=== PATIENT | male | born 1960 | race Caucasian/White ===

== ENCOUNTER 2019-09-15 14:00 | Inpatient (IN) | payer MEDICARE, MEDICAID ==
[2019-09-15] MEDS ORDERED: Albuterol 0.083% 2.5 MG/3 ML Neb Soln NEB PRN (15:51)
--- NOTE | 2019-09-15 16:01 | PCM.HP ---
H&P History of Present Illness - General Date of Service: 09/15/19 Admit Problem/Dx: Admission Diagnosis/Problem Admission Diagnosis/Problem COPD, Severe chronic obstructive pulmonary disease Source of Information: Patient History Limitations: Reports: No Limitations - History of Present Illness Initial Comments - Free Text/Narative: This 58-year-old man with medical history of coronary artery disease, peripheral vascular disease, COPD, obesity. The patient was admitted from the clinic with complaint of shortness of breath which has been going on for the past 4 days. It is present at rest and worse with activity. There is associated orthopnea. Exercise tolerance has been limited because of the shortness of breath. He also has mild cough. Has mild lower extremity swelling. Patient has been active smoker about 2 packs of cigarettes a day. Last tobacco use was 2 days ago. He was started on treatment as outpatient for pneumonia using azithromycin and Vantin. Has not improved - Related Data Allergies/Adverse Reactions: Allergies Allergy/AdvReac Type Severity Reaction Status Date / Time cat dander Allergy Other Verified 09/15/19 15:39 Penicillins Allergy Hives Verified 09/15/19 15:39 hydrochlorothiazide AdvReac Nausea Verified 09/15/19 15:39 [From Zestoretic] lisinopril [From Zestoretic] AdvReac Nausea Verified 09/15/19 15:39 Home Medications: Home Meds Albuterol [Ventolin HFA] 2 puff INH TID PRN 09/15/19 [History] Azithromycin 500 mg PO ASDIRECTED 09/15/19 [History] Cefpodoxime [Vantin] 200 mg PO BID 09/15/19 [History] Clopidogrel Bisulfate [Clopidogrel] 75 mg PO DAILY 09/15/19 [History] Isosorbide Mononitrate [Isosorbide Mononitrate ER] 120 mg PO DAILY 09/15/19 [History] Losartan Potassium 50 mg PO DAILY 09/15/19 [History] Metoprolol Succinate [Toprol XL 100mg] 100 mg PO DAILY 09/15/19 [History] Nitroglycerin [Nitrostat] 0.4 mg SL .Q5MIN PRN 09/15/19 [History] Simvastatin 20 mg PO DAILY 09/15/19 [History] Tiotropium [Spiriva HandiHaler] 18 mcg INH DAILY 09/15/19 [History] Past Medical History HEENT History: Reports: Glaucoma, Impaired Vision Other HEENT History: peripheral vision in right eye poor due to stroke. Cardiovascular History: Reports: Angina, Bypass, High Cholesterol, SOB on Exertion Respiratory History: Reports: COPD, SOB Gastrointestinal History: Reports: Other (See Below) Other Gastrointestinal History: abdominal hernia, inguinal hernia. Genitourinary History: Reports: None Musculoskeletal History: Reports: Arthritis, Back Pain, Chronic, Fracture Other Musculoskeletal History: broken left ankle Neurological History: Reports: Vertigo Psychiatric History: Reports: None Endocrine/Metabolic History: Reports: Obesity/BMI 30+ Hematologic History: Reports: None Immunologic History: Reports: None Oncologic (Cancer) History: Reports: None Dermatologic History: Reports: Other (See Below) Other Dermatologic History: excessive dryness to legs - Infectious Disease History Infectious Disease History: Reports: Chicken Pox, Measles, MRSA - Past Surgical History HEENT Surgical History: Reports: Adenoidectomy, Tonsillectomy Cardiovascular Surgical History: Reports: Coronary Artery Bypass Respiratory Surgical History: Reports: None GI Surgical History: Reports: Colonoscopy, Hernia, Abdominal, Hernia, Inguinal Endocrine Surgical History: Reports: None Neurological Surgical History: Reports: Spinal Fusion Musculoskeletal Surgical History: Reports: None Dermatological Surgical History: Reports: None Social & Family History - Family History Family Medical History: Noncontributory - Tobacco Use Smoking Status *Q: Current Some Day Smoker Years of Tobacco use: 40 Packs/Tins Daily: 2 Used Tobacco, but Quit: No - Caffeine Use Caffeine Use: Reports: Soda - Recreational Drug Use Recreational Drug Use: No H&P Review of Systems - Review of Systems: Review Of Systems: See Below General: Reports: Weakness Pulmonary: Reports: Shortness of Breath, Wheezing, Cough Cardiovascular: Reports: No Symptoms Gastrointestinal: Reports: No Symptoms Musculoskeletal: Reports: No Symptoms Exam - Exam Exam: See Below - Vital Signs Vital Signs: Last Vital Signs Temp 36.8 C 09/15/19 14:13 Pulse 88 09/15/19 14:13 Resp 28 H 09/15/19 14:13 BP 122/86 09/15/19 14:13 Pulse Ox 96 09/15/19 14:13 Weight: 192.947 kg - Exam General: Alert, Oriented, Cooperative, Mild Distress Neck: Supple Lungs: Decreased Breath Sounds, Rhonchi, Wheezing GI/Abdominal Exam: Other (Patient has periumbilical hernia) Extremities: Pedal Edema Skin: Warm - Patient Data Lab Results Last 24 hrs: Laboratory Results - last 24 hr 09/15/19 Range/Units 14:20 SARS-CoV-2 RNA (RT-PCR) Negative (NEGATIVE) Problem List Initiated/Reviewed/Updated: Yes Orders Last 24hrs: Active Orders 24 hr Category Date Time Status Patient Status [ADT] Routine ADT 09/15/19 15:43 Ordered Cardiac Monitoring [RC] CONTINUOUS Care 09/15/19 15:44 Ordered Intake and Output [RC] QSHIFT Care 09/15/19 15:44 Ordered Oxygen Therapy [RC] PRN Care 09/15/19 15:43 Ordered RT Aerosol Therapy [RC] ASDIRECTED Care 09/15/19 15:47 Ordered RT Aerosol Therapy [RC] ASDIRECTED Care 09/15/19 15:52 Ordered Up ad Shaylee [RC] ASDIRECTED Care 09/15/19 15:43 Ordered VTE/DVT Education [RC] PER UNIT ROUTINE Care 09/15/19 15:43 Ordered Vital Signs [RC] Q4H Care 09/15/19 15:43 Ordered BASIC METABOLIC PANEL,BMP [CHEM] AM Lab 09/16/19 05:11 Ordered CBC W/O DIFF,HEMOGRAM [HEME] AM Lab 09/16/19 05:11 Ordered PROCALCITONIN [REF] Routine Lab 09/15/19 15:53 Ordered TROPONIN I [CHEM] Q6H Lab 09/15/19 15:54 Ordered TROPONIN I [CHEM] Q6H Lab 09/15/19 21:54 Ordered Albuterol [Proventil Neb Soln] Med 09/15/19 15:51 Ordered 2.5 mg NEB Q2H PRN Albuterol/Ipratropium [DuoNeb 3.0-0.5 MG/3 ML] Med 09/15/19 19:00 Ordered 3 ml NEB Q4HRRT Azithromycin [Zithromax] Med 09/15/19 16:00 Ordered 500 mg PO ASDIRECTED Cefpodoxime Med 09/15/19 21:00 Ordered 200 mg PO BID Enoxaparin [Lovenox] Med 09/15/19 09:00 Ordered 40 mg SUBCUT DAILY Isosorbide Mononitrate [Imdur] Med 09/16/19 09:00 Ordered 120 mg PO DAILY Losartan [Cozaar] Med 09/16/19 09:00 Ordered 50 mg PO DAILY methylPREDNISolone Sod Succ [Solu-MEDROL] Med 09/15/19 16:00 Ordered 40 mg IVPUSH Q8H Resuscitation Status Routine Resus Stat 09/15/19 15:43 Ordered Medication Orders Albuterol (Proventil Neb Soln) 2.5 mg NEB Q2H PRN PRN Reason: shortness of breath Albuterol/Ipratropium (Duoneb 3.0-0.5 Mg/3 Ml) 3 ml NEB Q4HRRT [facility] Azithromycin (Zithromax) 500 mg PO ASDIRECTED [facility] Enoxaparin Sodium (Lovenox) 40 mg SUBCUT DAILY [facility] Isosorbide Mononitrate (Imdur) 120 mg PO DAILY [facility] Losartan Potassium (Cozaar) 50 mg PO DAILY [facility] Methylprednisolone Sodium Succinate (Solu-Medrol) 40 mg IVPUSH Q8H [facility] Non-Formulary Medication (Cefpodoxime) 200 mg PO BID [facility] Assessment/Plan Comment:: #. COPD exacerbation Patient is wheezing profusely #. Possible acute exacerbation of CHF Probably diastolic dysfunction Brain natruretic peptide is mildly elevated at just greater than 200 Chest x-ray showed pulmonary vascular congestion. #. Coronary artery disease Status post previous coronary artery bypass graft and stents #. Tobacco use disorder Patient was smoking 2 packs of cigarettes a day. #. Thrombocytopenia Platelet count is 87 #. Morbid obesity #. Peripheral vascular disease Plan: Admit patient to medical floor Comments aggressive nebulization with DuoNeb Albuterol every 2 hours Intravenous Solu Medrol Obtain troponin every 62 Continue Plavix Patient was started on oral antibiotics as outpatient. I will continue with it Send sample for procrastinator level
[2019-09-15] MEDS ORDERED: Nitroglycerin 0.4 MG Tab.SL SL PRN (16:06)
[2019-09-15] MEDS: methylPREDNISolone Sodium Succinate 40 MG/1 ML SDV IVPUSH SCH ×2 (16:18→21:11)
[2019-09-15] MEDS: Albuterol/Ipratropium 3.0-0.5 MG/3 ML Neb Soln NEB SCH ×2 (19:26→23:18)
[2019-09-15] MEDS ORDERED: Enoxaparin 40 MG/0.4 ML Syringe SUBCUT SCH (21:00)
[2019-09-15] MEDS: CEFPODOXIME 200 MG PO SCH (21:04)
[2019-09-15] MEDS: Ibuprofen 400 MG Tab PO PRN (21:20)
[2019-09-16] MEDS: Albuterol/Ipratropium 3.0-0.5 MG/3 ML Neb Soln NEB SCH ×6 (03:29→22:38)
[2019-09-16] MEDS: methylPREDNISolone Sodium Succinate 40 MG/1 ML SDV IVPUSH SCH ×3 (06:21→22:39)
[2019-09-16 06:55] LABS: ANION GAP 9.3 mEq/L (7-13); CHLORIDE,CL 103 mmol/L (98-107); SODIUM,NA 137 mmol/L (136-145)
--- NOTE | 2019-09-16 09:04 | PCM.PN ---
- General Info Date of Service: 09/16/19 Admission Dx/Problem (Free Text): Admission Diagnosis/Problem Admission Diagnosis/Problem COPD, Severe chronic obstructive pulmonary disease Subjective Update: This 58-year-old man with medical history of coronary artery disease, peripheral vascular disease, COPD, obesity. The patient was admitted from the clinic with complaint of shortness of breath which has been going on for the past 4 days. It is present at rest and worse with activity. There is associated orthopnea. Exercise tolerance has been limited because of the shortness of breath. He also has mild cough. Has mild lower extremity swelling. Patient has been active smoker about 2 packs of cigarettes a day. Last tobacco use was 2 days ago. He was started on treatment as outpatient for pneumonia using azithromycin and Vantin. Has not improved. He was admitted for COPD exacerbation/PNA/CHF exacerbation. This morning patient is doing ok. SOB has improved. He was noted to hve mil scattered wheeze on exam others he is clinically stable. He denies fever, chills, chest pain. Functional Status: Reports: Pain Controlled - Review of Systems General: Reports: No Symptoms HEENT: Reports: No Symptoms Pulmonary: Reports: No Symptoms Cardiovascular: Reports: No Symptoms Gastrointestinal: Reports: No Symptoms Genitourinary: Reports: No Symptoms Musculoskeletal: Reports: No Symptoms Skin: Reports: No Symptoms Neurological: Reports: No Symptoms Psychiatric: Reports: No Symptoms - Patient Data Vitals - Most Recent: Last Vital Signs Temp 97.6 F 09/16/19 08:00 Pulse 98 09/16/19 08:00 Resp 24 H 09/16/19 08:00 BP 139/96 H 09/16/19 08:00 Pulse Ox 94 L 09/16/19 08:00 Weight - Most Recent: 422 lb 12.8 oz I&O - Last 24 Hours: Intake & Output 09/15/19 09/16/19 09/16/19 22:59 06:59 14:59 Intake Total 240 700 325 Output Total 500 500 Balance -260 200 325 Lab Results Last 24 Hours: Laboratory Results - last 24 hr 09/15/19 09/15/19 09/15/19 Range/Units 14:20 16:06 22:00 WBC (5.0-10.0) 10^3/uL RBC (4.6-6.2) 10^6/uL Hgb (14.0-18.0) g/dL Hct (40.0-54.0) % MCV (80-100) fL MCH (27.0-34.0) pg MCHC (33.0-35.0) g/dL Plt Count (150-450) 10^3/uL Sodium (136-145) mmol/L Potassium (3.5-5.1) mmol/L Chloride (98-107) mmol/L Carbon Dioxide (21-32) mmol/L Anion Gap (7-13) mEq/L BUN (7-18) mg/dL Creatinine (0.70-1.30) mg/dL Est Cr Clr Drug Dosing mL/min Estimated GFR (MDRD) Glucose (74-99) mg/dL Calcium (8.5-10.1) mg/dL Troponin I < 0.017 < 0.017 (0.000-0.056) ng/mL SARS-CoV-2 RNA (RT-PCR) Negative (NEGATIVE) 09/16/19 09/16/19 Range/Units 06:08 06:08 WBC 4.1 L (5.0-10.0) 10^3/uL RBC 4.77 (4.6-6.2) 10^6/uL Hgb 14.7 (14.0-18.0) g/dL Hct 44.7 (40.0-54.0) % MCV 93.7 (80-100) fL MCH 30.8 (27.0-34.0) pg MCHC 32.9 L (33.0-35.0) g/dL Plt Count 82 L (150-450) 10^3/uL Sodium 137 (136-145) mmol/L Potassium 4.3 (3.5-5.1) mmol/L Chloride 103 (98-107) mmol/L Carbon Dioxide 29 (21-32) mmol/L Anion Gap 9.3 (7-13) mEq/L BUN 14 (7-18) mg/dL Creatinine 0.77 (0.70-1.30) mg/dL Est Cr Clr Drug Dosing 111.98 mL/min Estimated GFR (MDRD) > 60 Glucose 127 H (74-99) mg/dL Calcium 8.4 L (8.5-10.1) mg/dL Troponin I (0.000-0.056) ng/mL SARS-CoV-2 RNA (RT-PCR) (NEGATIVE) Med Orders - Current: Current Medications Albuterol (Proventil Neb Soln) 2.5 mg NEB Q2H PRN PRN Reason: shortness of breath Last Admin: 09/15/19 16:18 Dose: 2.5 mg Documented by: Albuterol/Ipratropium (Duoneb 3.0-0.5 Mg/3 Ml) 3 ml NEB Q4HRRT [facility] Last Admin: 09/16/19 07:42 Dose: 3 ml Documented by: Azithromycin (Zithromax) 250 mg PO DAILY [facility] Stop: 09/18/19 09:01 Clopidogrel Bisulfate (Plavix) 75 mg PO DAILY [facility] Enoxaparin Sodium (Lovenox) 40 mg SUBCUT BEDTIME [facility] Last Admin: 09/15/19 21:06 Dose: 40 mg Documented by: Ibuprofen (Motrin) 400 mg PO Q8H PRN PRN Reason: Pain Last Admin: 09/15/19 21:20 Dose: 400 mg Documented by: Isosorbide Mononitrate (Imdur) 120 mg PO DAILY [facility] Losartan Potassium (Cozaar) 50 mg PO DAILY [facility] Methylprednisolone Sodium Succinate (Solu-Medrol) 40 mg IVPUSH Q8HR [facility] Last Admin: 09/16/19 06:21 Dose: 40 mg Documented by: Metoprolol Succinate (Toprol Xl) 100 mg PO DAILY [facility] Nitroglycerin (Nitrostat) 0.4 mg SL .Q5MIN PRN PRN Reason: Chest Pain Cefpodoxime 200 Mg (Tab Own Med) 0 each PO BID [facility] Stop: 09/24/19 09:01 Last Admin: 09/15/19 21:04 Dose: 1 each Documented by: Simvastatin (Zocor) 20 mg PO DAILY [facility] Tiotropium [place] (Spiriva Handihaler) 18 mcg INH DAILY [facility] - Exam Quality Assessment: DVT Prophylaxis General: Alert, Oriented HEENT: Pupils Equal, Pupils Reactive, EOMI, Mucous Membr. Moist/[place] Neck: Supple Lungs: Clear to Auscultation, Normal Respiratory Effort, Wheezing Cardiovascular: Regular Rate, Regular Rhythm GI/Abdominal Exam: Normal Bowel Sounds, Soft, Non-Tender, No Organomegaly, No Distention, No Abnormal Bruit, No Mass, Pelvis Stable (Male) Exam: No Hernia, Normal Inspection, Normal Prostate, Circumcised Back Exam: Normal Inspection, Full Range of Motion Extremities: Normal Inspection, Normal Range of Motion, Non-Tender, No Pedal Edema, Normal Capillary Refill Skin: Warm, Dry, Intact Wound/Incisions: Healing Well Neurological: No New Focal Deficit Psy/Mental Status: Alert, Normal Affect, Normal Mood Sepsis Event Note - Evaluation Sepsis Screening Result: No Definite Risk - Focused Exam Vital Signs: Vital Signs Temp Pulse Resp BP Pulse Ox Pulse Ox 09/16/19 08:00 97.6 F 98 24 H 139/96 H 94 L 09/16/19 04:30 97 F 82 24 H 132/78 97 09/16/19 03:29 95 91 L 09/16/19 00:35 97.4 F 93 22 H 141/89 H 94 L 09/15/19 23:18 85 90 L Date Exam was Performed: 09/16/19 Time Exam was Performed: 10:06 - Problem List & Annotations (1) COPD exacerbation SNOMED Code(s): 448107573 Code(s): J44.1 - CHRONIC OBSTRUCTIVE PULMONARY DISEASE W (ACUTE) EXACERBATION Status: Acute Current Visit: Yes (2) Diastolic CHF, acute SNOMED Code(s): 828178910, 767708851 Code(s): I50.31 - ACUTE DIASTOLIC (CONGESTIVE) HEART FAILURE Status: Acute Current Visit: Yes (3) Diastolic CHF, acute on chronic SNOMED Code(s): 797944034, 412032477 Code(s): I50.33 - ACUTE ON CHRONIC DIASTOLIC (CONGESTIVE) HEART FAILURE Status: Acute Current Visit: Yes (4) PNA (pneumonia) SNOMED Code(s): 591248909 Code(s): J18.9 - PNEUMONIA, UNSPECIFIED ORGANISM Status: Acute Current Visit: Yes (5) Obesity SNOMED Code(s): 603574846, 763292517 Code(s): E66.9 - OBESITY, UNSPECIFIED Status: Acute Current Visit: Yes (6) Thrombocytopenia SNOMED Code(s): 949124778 Code(s): D69.6 - THROMBOCYTOPENIA, UNSPECIFIED Status: Acute Current Visit: Yes (7) Tobacco abuse SNOMED Code(s): 244795873 Code(s): Z72.0 - TOBACCO USE Status: Acute Current Visit: Yes - Problem List Review Problem List Initiated/Reviewed/Updated: Yes - Plan Plan:: #. COPD exacerbation -Improving -Continue breathing treatment -IV Solu-Medrol #. Possible acute exacerbation of CHF -Probably diastolic dysfunction -Chest x-ray showed pulmonary vascular congestion -Continue diuretics -Fluid restriction -Daily weights -Low salt diet #. Coronary artery disease -Status post previous coronary artery bypass graft and stents -Continue home medications #. Tobacco use disorder -Patient was smoking 2 packs of cigarettes a day. -Machinery Rigger provided -Nicotine patch provided #. Thrombocytopenia -Platelet count is 87 -Hold heparin product -Ambulate patient #. Morbid obesity -Advised to loose weight #. Peripheral vascular disease -Continue home medications
[2019-09-16] MEDS: Simvastatin 40 MG Tab PO SCH (10:28)
[2019-09-16] MEDS: Losartan 50 MG Tab PO SCH (10:29)
[2019-09-16] MEDS: Isosorbide Mononitrate 60 MG Tab.ER PO SCH (10:29)
[2019-09-16] MEDS: Clopidogrel 75 MG Tab PO SCH (10:30)
[2019-09-16] MEDS ORDERED: Nicotine 21 MG/24 Hr Patch TRDERM SCH (10:30)
[2019-09-16] MEDS: Metoprolol Succinate 50 MG Tab.ER PO SCH (10:30)
[2019-09-16] MEDS: Tiotropium Inhaler 18 MCG Inhalation Powder Cap Kit of 5 INH SCH (10:31)
[2019-09-16] MEDS: CEFPODOXIME 200 MG PO SCH ×2 (10:36→21:05)
[2019-09-16] MEDS: AZITHROMYCIN 250 MG PO SCH (10:37)
[2019-09-16] MEDS: Nicotine 21 MG/24 Hr Patch TRDERM SCH (12:52)
[2019-09-16] MEDS: Ibuprofen 400 MG Tab PO PRN (22:37)
[2019-09-17] MEDS: Albuterol/Ipratropium 3.0-0.5 MG/3 ML Neb Soln NEB SCH ×3 (03:08→11:23)
[2019-09-17] MEDS: methylPREDNISolone Sodium Succinate 40 MG/1 ML SDV IVPUSH SCH (06:06)
[2019-09-17] MEDS: Tiotropium Inhaler 18 MCG Inhalation Powder Cap Kit of 5 INH SCH (08:26)
[2019-09-17] MEDS: Metoprolol Succinate 50 MG Tab.ER PO SCH (08:26)
[2019-09-17] MEDS: Isosorbide Mononitrate 60 MG Tab.ER PO SCH (08:27)
[2019-09-17] MEDS: Simvastatin 40 MG Tab PO SCH (08:28)
[2019-09-17] MEDS: Losartan 50 MG Tab PO SCH (08:28)
[2019-09-17] MEDS: Clopidogrel 75 MG Tab PO SCH (08:28)
[2019-09-17] MEDS: Nicotine 21 MG/24 Hr Patch TRDERM SCH (08:29)
[2019-09-17] MEDS: CEFPODOXIME 200 MG PO SCH (08:31)
[2019-09-17] MEDS: AZITHROMYCIN 250 MG PO SCH (08:31)
--- NOTE | 2019-09-17 09:16 | PCM.DCSUM1 ---
Discharge Summary - Hospital Course Free Text/Narrative:: This 58-year-old man with medical history of coronary artery disease, peripheral vascular disease, COPD, obesity. The patient was admitted from the clinic with complaint of shortness of breath which has been going on for the past 4 days. It is present at rest and worse with activity. There is associated orthopnea. Exercise tolerance has been limited because of the shortness of breath. He also has mild cough. Has mild lower extremity swelling. Patient has been active smoker about 2 packs of cigarettes a day. Last tobacco use was 2 days ago. He was started on treatment as outpatient for pneumonia using azithromycin and Vantin. Has not improved. He was admitted for COPD exacerbation/PNA/CHF exacerbation. He was managed with breathing treatment and abxs. His condition improved significantly and he was discharged in stable condition with plan to follow up with pcp. Patient was educated on the dangers of continue tobacco abuse and was counselled to quit. He verbalized understanding. Diagnosis: Stroke: No - Discharge Data Discharge Date: 09/17/19 Discharge Disposition: Home, Self-Care 01 Condition: Good - Referral to Home Health Primary Care Physician: Kimberly Cisse NP - Discharge Diagnosis/Problem(s) (1) COPD exacerbation SNOMED Code(s): 277766447 ICD Code: J44.1 - CHRONIC OBSTRUCTIVE PULMONARY DISEASE W (ACUTE) EXACERBATION Status: Acute Current Visit: Yes (2) Diastolic CHF, acute SNOMED Code(s): 510748251, 204657291 ICD Code: I50.31 - ACUTE DIASTOLIC (CONGESTIVE) HEART FAILURE Status: Acute Current Visit: Yes (3) Diastolic CHF, acute on chronic SNOMED Code(s): 104485887, 590395448 ICD Code: I50.33 - ACUTE ON CHRONIC DIASTOLIC (CONGESTIVE) HEART FAILURE Status: Acute Current Visit: Yes (4) PNA (pneumonia) SNOMED Code(s): 418860927 ICD Code: J18.9 - PNEUMONIA, UNSPECIFIED ORGANISM Status: Acute Current Visit: Yes (5) Obesity SNOMED Code(s): 444678131, 632202587 ICD Code: E66.9 - OBESITY, UNSPECIFIED Status: Acute Current Visit: Yes (6) Thrombocytopenia SNOMED Code(s): 094103390 ICD Code: D69.6 - THROMBOCYTOPENIA, UNSPECIFIED Status: Acute Current Visit: Yes (7) Tobacco abuse SNOMED Code(s): 562891611 ICD Code: Z72.0 - TOBACCO USE Status: Acute Current Visit: Yes - Discharge Plan *PRESCRIPTION DRUG MONITORING PROGRAM REVIEWED*: Not Applicable *COPY OF PRESCRIPTION DRUG MONITORING REPORT IN PATIENT LYLE: Not Applicable Prescriptions/Med Rec: Furosemide [Lasix] 40 mg PO DAILY 30 Days #30 tablet Home Medications: Home Meds Albuterol [Ventolin HFA] 2 puff INH TID PRN 09/15/19 [History] Azithromycin 500 mg PO ASDIRECTED 09/15/19 [History] Cefpodoxime [Vantin] 200 mg PO BID 09/15/19 [History] Clopidogrel Bisulfate [Clopidogrel] 75 mg PO DAILY 09/15/19 [History] Isosorbide Mononitrate [Isosorbide Mononitrate ER] 120 mg PO DAILY 09/15/19 [History] Losartan Potassium 50 mg PO DAILY 09/15/19 [History] Metoprolol Succinate [Toprol XL 100mg] 100 mg PO DAILY 09/15/19 [History] Nitroglycerin [Nitrostat] 0.4 mg SL .Q5MIN PRN 09/15/19 [History] Simvastatin 20 mg PO DAILY 09/15/19 [History] Tiotropium [Spiriva HandiHaler] 18 mcg INH DAILY 09/15/19 [History] Furosemide [Lasix] 40 mg PO DAILY 30 Days #30 tablet 09/17/19 [Rx] Patient Handouts: Chronic Obstructive Pulmonary Disease Exacerbation, [id number] Referrals: Kimberly Cisse NP [Primary Care Provider] - - Discharge Summary/Plan Comment DC Time >30 min.: Yes Discharge Summary/Plan Comment: Follow up with PCP Quit tobacco use - General Info Date of Service: 09/17/19 Admission Dx/Problem (Free Text: Admission Diagnosis/Problem Admission Diagnosis/Problem COPD, Severe chronic obstructive pulmonary disease Subjective Update: This morning patient is doing ok. SOB has improved. Off oxygen Functional Status: Reports: Pain Controlled - Review of Systems General: Reports: No Symptoms HEENT: Reports: No Symptoms Pulmonary: Reports: No Symptoms Cardiovascular: Reports: No Symptoms Gastrointestinal: Reports: No Symptoms Genitourinary: Reports: No Symptoms Musculoskeletal: Reports: No Symptoms Skin: Reports: No Symptoms Neurological: Reports: No Symptoms Psychiatric: Reports: No Symptoms - Patient Data Vitals - Most Recent: Last Vital Signs Temp 97.9 F 09/16/19 20:00 Pulse 92 09/17/19 08:26 Resp 22 H 09/16/19 20:00 BP 152/93 H 09/17/19 08:28 Pulse Ox 94 L 09/17/19 07:27 Weight - Most Recent: 419 lb 2 oz I&O - Last 24 hours: Intake & Output 09/16/19 09/17/19 09/17/19 22:59 06:59 14:59 Intake Total 360 Output Total 1700 500 Balance -1340 -500 Med Orders - Current: Current Medications Albuterol (Proventil Neb Soln) 2.5 mg NEB Q2H PRN PRN Reason: shortness of breath Last Admin: 09/15/19 16:18 Dose: 2.5 mg Documented by: Albuterol/Ipratropium (Duoneb 3.0-0.5 Mg/3 Ml) [address] [facility] Last Admin: 09/17/19 07:27 Dose: 3 ml Documented by: Azithromycin (Zithromax) [address] [facility] Stop: 09/18/19 09:01 Last Admin: 09/17/19 08:31 Dose: 250 mg Documented by: Clopidogrel Bisulfate (Plavix) [address] [facility] Last Admin: 09/17/19 08:28 Dose: 75 mg Documented by: Ibuprofen (Motrin) 400 mg PO Q8H PRN PRN Reason: Pain Last Admin: 09/16/19 22:37 Dose: 400 mg Documented by: Isosorbide Mononitrate (Imdur) [address] [facility] Last Admin: 09/17/19 08:27 Dose: 120 mg Documented by: Losartan Potassium (Cozaar) [address] [facility] Last Admin: 09/17/19 08:28 Dose: 50 mg Documented by: Methylprednisolone Sodium Succinate (Solu-Medrol) [address] [facility] Last Admin: 09/17/19 06:06 Dose: 40 mg Documented by: Metoprolol Succinate (Toprol Xl) [address] [facility] Last Admin: 09/17/19 08:26 Dose: 100 mg Documented by: Miscellaneous Information (Check Patch) [address] [facility] Last Admin: 09/16/19 21:05 Dose: Not Given Documented by: Nicotine (Habitrol) [address] [facility] Last Admin: 09/17/19 08:29 Dose: 21 mg Documented by: Nitroglycerin (Nitrostat) 0.4 mg SL .Q5MIN PRN PRN Reason: Chest Pain Cefpodoxime 200 Mg (Tab Own Med) [address] [facility] Stop: 09/24/19 09:01 Last Admin: 09/17/19 08:31 Dose: 1 each Documented by: Simvastatin (Zocor) [address] [facility] Last Admin: 09/17/19 08:28 Dose: 20 mg Documented by: Tiotropium [place] (Spiriva Handihaler) [address] [facility] Last Admin: 09/17/19 08:26 Dose: 18 mcg Documented by: Discontinued Medications Enoxaparin Sodium (Lovenox) [address] [facility] Last Admin: 09/15/19 21:06 Dose: 40 mg Documented by: Nicotine (Habitrol) [address] [facility] - Exam General: Reports: Alert, Oriented HEENT: Reports: Pupils Equal, Pupils Reactive, EOMI, Mucous Membr. Moist/[place] Neck: Reports: Supple Lungs: Reports: Clear to Auscultation, Normal Respiratory Effort Cardiovascular: Reports: Regular Rate, Regular Rhythm GI/Abdominal Exam: Normal Bowel Sounds, Soft, Non-Tender, No Organomegaly, No Distention, No Abnormal Bruit, No Mass, Pelvis Stable (Male) Exam: No Hernia, Normal Inspection, Normal Prostate, Circumcised Rectal (Males) Exam: Normal Exam, Normal Rectal Tone, Prostate Normal Back Exam: Reports: Normal Inspection, Full Range of Motion Extremities: Normal Inspection, Normal Range of Motion, Non-Tender, No Pedal Edema, Normal Capillary Refill Skin: Reports: Warm, Dry, Intact Wound/Incisions: Reports: Healing Well Neurological: Reports: No New Focal Deficit Psy/Mental Status: Reports: Alert, Normal Affect, Normal Mood
== END 2019-09-17 13:30 | disposition home or self-care (01) | DRG 291 ==
LOC: UNDOADMIN 14:04 → DL.MS 14:04
PROVIDERS: ADMIT Hospitalist; ATTEND Student in an Organized Health Care Education/Training Program
DX: I50.33 Acute on chronic diastolic (congestive) heart failure (principal); J96.00 Acute respiratory failure, unspecified whether with hypoxia or hypercapnia; J18.9 Pneumonia, unspecified organism; J44.0 Chronic obstructive pulmonary disease with (acute) lower respiratory infection; Z68.43 Body mass index [BMI] 50.0-59.9, adult; J44.1 Chronic obstructive pulmonary disease with (acute) exacerbation; D69.6 Thrombocytopenia, unspecified; Z20.828 Contact with and (suspected) exposure to other viral communicable diseases; I25.10 Atherosclerotic heart disease of native coronary artery without angina pectoris; I73.9 Peripheral vascular disease, unspecified; E78.00 Pure hypercholesterolemia, unspecified; M19.90 Unspecified osteoarthritis, unspecified site; E66.01 Morbid (severe) obesity due to excess calories; F17.210 Nicotine dependence, cigarettes, uncomplicated; M54.9 Dorsalgia, unspecified; G89.29 Other chronic pain; Z79.899 Other long term (current) drug therapy; Z88.0 Allergy status to penicillin; Z88.8 Allergy status to other drugs, medicaments and biological substances; Z91.09 Other allergy status, other than to drugs and biological substances; Z28.82 Immunization not carried out because of caregiver refusal; Z71.6 Tobacco abuse counseling
CPT/HCPCS: 36415; 80048; 84145; 84484; 85027; 94640; A9270-GY; J1650; J2920; J7613-GY; J7620-GY; U0002

== ENCOUNTER 2022-05-02 14:25 | Emergency (ER) | payer MEDICARE, MEDICAID ==
[2022-05-02] MEDS ORDERED: EPINEPHrine 1:10,000 1 MG/10 ML Syringe IV ONE ×2 (14:30→14:33)
== END 2022-05-02 16:49 | disposition expired ==
LOC: DL.ED 14:25
DX: I46.9 Cardiac arrest, cause unspecified (principal); J44.9 Chronic obstructive pulmonary disease, unspecified; E66.9 Obesity, unspecified; Z88.0 Allergy status to penicillin; Z88.8 Allergy status to other drugs, medicaments and biological substances; Z91.048 Other nonmedicinal substance allergy status; Z79.899 Other long term (current) drug therapy
CPT/HCPCS: 92950; 99285; 99285-25; J0171